=== PATIENT | female | born 1955 | race Caucasian/White ===

== ENCOUNTER 2018-02-26 08:44 | Outpatient (REF) | payer OTHER, SELFPAY ==
[2018-02-26 15:28] LABS: Hemoglobin A1C 5.9 % (4.5-6.2)
[2018-02-26 16:21] LABS: ALT 43 U/L (12-78); AST 23 U/L (15-37); Albumin 4.1 g/dL (3.4-5.0); Alkaline Phosphatase 74 U/L (46-116); Anion Gap 8.7 mmol/L (3-11); BUN 20 mg/dL (7-18); Bilirubin, Total 0.3 mg/dL (0.2-1.0); CO2 29.3 mmol/L (21.0-32.0); CREATININE 0.82 mg/dL (0.55-1.02); Calcium 9.6 mg/dL (8.5-10.1); Chloride 103 mmol/L (98-107); Cholesterol 209 mg/dL (50-200); Glucose 107 mg/dL (70-100); HDL Cholesterol 61 mg/dL (40-60); LDL CHOLESTEROL 129 mg/dL (<100); Potassium 4.3 mmol/L (3.5-5.1); Sodium 141 mmol/L (136-145); TSH (W/Ref FT4) 0.24 uIU/mL (0.358-3.74); Total Protein 7.4 g/dL (6.4-8.2); Triglyceride 92 mg/dL (30-150)
[2018-02-26 16:53] LABS: FREE T4 1.52 ng/dL (0.76-1.46)
== END 2018-02-26 09:04 ==
LOC: NCHCN 08:44
PROVIDERS: PCP Nurse Practitioner; Visit Provider Nurse Practitioner
DX: I10 Essential (primary) hypertension (principal); E78.5 Hyperlipidemia, unspecified; E03.9 Hypothyroidism, unspecified
CPT/HCPCS: 80053; 80061; 83721; 83036; 84439; 84443

== ENCOUNTER 2018-03-19 15:05 | Outpatient (REF) | payer OTHER, SELFPAY ==
--- NOTE | 2018-03-19 14:35 | PAPFT_PTH ---
PATIENT: Nadeem Grey LOC: [facility] U#:[id number] AGE/SX: 62/F ROOM: RE03/19/[address]: Anastasiya Escalona MD : 1955 BED: DIS: 03/19/2018 SPEC #: [id number] RECD: 03/19/18 17:43 STATUS: JOSE RECristobal #: [id number] LATHA: 03/19/18 14:[address]: Anastasiya Escalona DEPT: [facility] Cytology RECD BY: Samantha Liang ENTERED: 03/19/18 17:43 SP TYPE: PAPFT OTHR DR: Pia Abraham Tissues: 1 - CX/ENDOCX FOR PAP SMEARS Procedures: PAP THIN PREP/UVM Screening HPV DNA PROBE Comments: [id number]
== END 2018-03-19 15:25 ==
LOC: LBN 15:05
PROVIDERS: PCP Nurse Practitioner; Visit Provider Obstetrics & Gynecology
DX: Z12.4 Encounter for screening for malignant neoplasm of cervix (principal); Z11.51 Encounter for screening for human papillomavirus (HPV)
CPT/HCPCS: 88142; 87624

== ENCOUNTER 2018-05-10 10:30 | Outpatient (REF) | payer OTHER, SELFPAY ==
[2018-05-10 14:24] LABS: TSH (W/Ref FT4) 0.44 uIU/mL (0.358-3.74)
[2018-05-10 14:38] LABS: Vitamin D 25 Total 45.3 ng/ml (30-100)
[2018-05-11 10:09] LABS: DHEA Sulfate 71 ug/dl (30-182)
== END 2018-05-10 10:50 ==
LOC: NCHCN 10:30
PROVIDERS: PCP Nurse Practitioner; Visit Provider Nurse Practitioner
DX: R53.83 Other fatigue (principal); E03.9 Hypothyroidism, unspecified; E55.9 Vitamin D deficiency, unspecified
CPT/HCPCS: 82306; 82627; 84443

== ENCOUNTER 2018-08-02 00:35 | Outpatient (CLI) | payer OTHER, SELFPAY ==
--- NOTE | 2018-08-02 12:14 | DI.US_ITS ---
SYMPTOMS/DIAGNOSIS: POSTMENOPAUSAL BLEEDING, N95.0, SPOTTING, CRAMPING PELVIC ULTRASOUND: A transabdominal and transvaginal examination was carried out. The uterus measures 8 cm in length, 4.1 cm in height and 4.6 cm in width with an endometrial stripe thickness of 11.2 mm. There is a small quantity of fluid within the endometrial cavity. A 2.5 x 1.9 x 2.6 cm complex avascular collection is noted in the cervix and may well represent blood products. The right ovary is not seen. The left ovary measures 1.6 x 1.3 x 2.1 cm and is visualized only on the transabdominal examination. The kidneys are unremarkable. There is no evidence of free pelvic fluid. SUMMARY: A 2.5 x 1.9 x 2.6 cm region of mixed echogenicity, which is avascular, is noted in the cervix, probably representing blood products. There is also a small quantity of fluid in the endometrial cavity. Note is made of nonvisualization of the right ovary.
== END 2018-08-02 00:55 ==
PROVIDERS: PCP Nurse Practitioner; Visit Provider Obstetrics & Gynecology
DX: N95.0 Postmenopausal bleeding (principal); N94.6 Dysmenorrhea, unspecified; N88.8 Other specified noninflammatory disorders of cervix uteri
CPT/HCPCS: 76830; 76856

== ENCOUNTER 2018-08-16 11:21 | Day surgery (SDC) | payer OTHER, SELFPAY ==
[2018-08-16 11:33] VITALS: BP 158/89; PULSE 73; RESP 16; TEMP 36.9; O2SAT 97
--- NOTE | 2018-08-16 11:54 | W.PM.HP.N ---
Date of service: 08/16/18 Time of Service: 11:55 Assessment and Plan (1) Postmenopausal bleeding: Current visit: Yes Status: Acute (1) PMB (postmenopausal bleeding): At this point we will discontinue the premarin cream at least until her endometrial pathology results have returned. We will start her on Aygestin 5mg BID for the short term. She is going on vacation to [place] next week so we will defer biopsy until her return the following week. I had a discussion with the patient that with patients having PMB that malignancy of the endometrium must always be a consideration and can only be determined through biopsy. EMB was unable to be obtained in the office largely due to anatomic changes of the cervix and upper vagina which are presumably from atrophy. We will schedule her for Hysteroscopy D&C. Risks of surgery were reviewed. All questions were answered to the patient's satisfaction and consent was obtained. History of Present Illness Chief Complaint: PMPB Narrative: 63 yo female with PMPB here for planned procedure Hysteroscopy D+C Review of Systems Review of Systems All systems reviewed & are unremarkable except as noted in HPI and below PFSH Medical History Hx of retinal detachment (Acute) Hypertension Hypoactive thyroid Surgical History History of cataract surgery (Chronic) section Family History Mother Hemochromatosis Father Hemochromatosis Brother Diabetes Social History Smoking/Tobacco Use Status: Former Tobacco Use Quit Date: 08/06/86 Tobacco: How many years used: 10 Drug use: Never Details: Pt states she quit smoking 1986. Do you feel safe at home: Yes Do you feel safe in your relationship?: Yes Meds Home Medications Medication Instructions Recorded Confirmed Type levothyroxine [Synthroid] 137 mcg PO DAILY tab-cap 03/26/13 08/16/18 History cholecalciferol (vitamin D3) 2,000 unit PO DAILY 08/08/16 08/16/18 History [Vitamin D3] loratadine [Claritin] 10 mg PO DAILY tab-cap 08/08/16 08/03/18 History omega-3 fatty acids-fish oil 2 ea PO DAILY 08/08/16 08/16/18 History lisinopril 10 mg tablet 10 mg PO DAILY 03/19/18 08/16/18 History conjugated estrogens 0.625 mg/gram See Rx Instructions .ROUTE 04/06/18 08/16/18 Rx vaginal cream .COMPLEX #30 gm norethindrone acetate 5 mg PO BID 08/16/18 08/16/18 History Allergies Allergy/AdvReac Type Severity Reaction Status Date / Time No Known Allergies Allergy Unverified 08/16/18 11:39 Exam Narrative Exam Narrative: cooperative healthy appearing no distress Chest Chest: normal inspection of the chest Resp Effort & Inspection: normal respiratory effort Auscultation: clear to auscultation bilaterally Percussion: percussion normal GI Inspection: normal to inspection Palpation: soft and no hepatosplenomegaly Auscultation: normal bowel sounds External Female Exam: external appearance normal Speculum Exam - Vagina: normal appearance of the vagina Speculum Exam - Cervix: normal appearance of the cervix Bimanual Exam- Vagina & Uterus: normal bimanual exam Results Labs : 08/16/18 11:34 Last Vital Signs Temp 36.9 C 08/16/18 11:33 Pulse 73 08/16/18 11:33 Resp 16 08/16/18 11:33 BP 158/89 H 08/16/18 11:33 Pulse Ox 97 08/16/18 11:33
[2018-08-16 11:58] LABS: HCT 43.3 % (36.0-46.0); HGB 14.7 g/dL (12.0-15.5); Mean Corp. HGB Concentration 33.9 g/dL (32.0-36.0); Mean Corpuscular Hemoglobin 30.6 pg (27.0-33.0); Mean Corpuscular Volume 90.2 fL (80-95); Mean Platelet Volume 10.2 fL (8.0-11.0); Platelet Count 256 x1000/uL (130-400); RBC Distribution Width 13.5 % (11.7-14.6); White Blood Cell Count 9.56 k/cumm (4.4-10.8)
[2018-08-16] MEDS: Lactated Ringers 1,000 ML 125 ML IV ×2 (13:55→16:00)
--- NOTE | 2018-08-16 16:15 | ENDOMET_PTH ---
PATIENT: Nadeem Grey LOC: [facility] U#:[id number] AGE/SX: 63/F ROOM: RE08/16/[address]: Anastasiya Escalona MD : 1955 BED: DIS: 08/16/2018 SPEC #: [id number] RECD: 08/16/18 17:21 STATUS: JOSE REQ #: [id number] LATHA: 08/16/18 16:[address]: Anastasiya Escalona DEPT: Surgical Specimen RECD BY: Samantha Liang ENTERED: 08/16/18 17:21 SP TYPE: Endomet OTHR DR: Pia Abraham Tissues: 1 - ENDOMETRIUM BX/CURRETTE Procedures: GROSS AND MICRO LEVEL 4 Comments: [id number]
[2018-08-16 16:19] LABS: Bilirubin Negative (Negative); Blood Small (Negative); Clarity Clear; Glucose Negative (Negative); Ketones Negative (Negative); Leukocyte Esterase Negative (Negative); Nitrite Negative (Negative); Urobilinogen 0.2 EU/dL (Up TO 0.2)
[2018-08-16] MEDS: Lidocaine 1% Multi-Dose 50 ML VIAL (16:23)
[2018-08-16 17:10] LABS: Bacteria Negative HPF (Negative); C & S Indicated? Yes; Crystals Negative HPF (Negative); Epithelial Cells Few HPF (Negative); Mucus Negative (Negative); RBC 0-2 (0-2); WBC 20-50 HPF (0-5)
[2018-08-16 17:14] VITALS: BP 142/62; PULSE 64; RESP 16; TEMP 36.6; O2SAT 96
--- NOTE | 2018-08-17 07:24 | ROE_ITS ---
REPORT OF OPERATIVE PROCEDURE DATE OF PROCEDURE August 16, 2018 PREOPERATIVE DIAGNOSIS Postoperative bleeding. POSTOPERATIVE DIAGNOSIS Postoperative bleeding. PROCEDURE Hysteroscopy D and C. SURGEON Anastasiya Escalona M.D. HOUSEKEEPING/LAUNDRY Amber Gonzalez M.D. ANESTHESIA GENERAL COMPLICATIONS None. ESTIMATED BLOOD LOSS Less than 25 cc. FLUIDS Per Anesthesia record FINDINGS Thickened polypoid irregular endometrium. PROCEDURE The patient was taken to the Operating Room where she was properly identified. She was then placed on the Operating Table in the dorsal supine position, and general anesthesia was induced without diffic ulty. She was then placed in the dorsal lithotomy position, prepped and draped in the normal sterile fashion. A formal timeout procedure was then confirmed. Confirming the patient and procedure with al l surgical personnel present. The patient had been complaining of dysuria preoperatively and a UA wa s requested preoperatively, however it was not sent, therefore a straight cath urine collection was o btained and the urine was sent for a UA culture and sensitivity. She did receive presumptive treatmen t antibiotics for UTI with 2 grams of Ancef preoperatively. A speculum was placed. The cervix was vis ualized, grasped on the anterior lip with a single-tooth tenaculum. The posterior lip of the cervix w as adhesed to the posterior fornices of the vagina. These adhesions were released by manual dissectio n. It was difficult to visualize her cervical os and dilate. At this time, it was requested that Dr. Gonzalez to assist with the case, for an extra set of hands and eyes. The cervix was identified. The cervix was dilated. The hysteroscope was advanced through the uterine cavity. The above findings wer e noted; it was a thickened irregular polypoid endometrium. Sharp curettage was then confirmed to go od cryo. The endometrial curettings were sent to Pathology for permanent evaluation. All the equipmen t was removed from the uterus. Hemostasis was confirmed. Sponge, lap, needle, and instrument counts w ere correct x2. CC: [facility]
== END 2018-08-16 17:14 | disposition home or self-care (01) ==
PROVIDERS: PCP Nurse Practitioner; Visit Provider Obstetrics & Gynecology
PROC: 0UDB8ZZ Extraction of Endometrium, Via Natural or Artificial Opening Endoscopic (ICD-10-PCS; CPT 58558; principal; 2018-08-16 13:00)
DX: N95.0 Postmenopausal bleeding (principal); C54.1 Malignant neoplasm of endometrium; I10 Essential (primary) hypertension; R30.0 Dysuria
CPT/HCPCS: 58558; 85027; 86850; 86900; 86901; 88305; NC; 81003; 81015; 87086

== ENCOUNTER 2019-01-15 20:22 | Outpatient (REF) | payer OTHER, SELFPAY ==
[2019-01-15 19:15] LABS: Bilirubin Negative (Negative); Blood Trace-intact (Negative); Clarity Clear (Clear); Glucose Negative (Negative); Ketones Negative (Negative); Leukocyte Esterase Moderate (Negative); Nitrite Negative (Negative); Specific Gravity <= 1.005 (1.005-1.025); Urobilinogen 0.2 EU/dL (Up TO 0.2); pH 5.5 (5-8)
[2019-01-15 19:55] LABS: Bacteria Moderate HPF (Negative); Crystals Moderate Amorphous HPF (Negative); Epithelial Cells Negative HPF (Negative); Mucus Negative (Negative); Other Cells Negative (Negative); RBC 0-2 (0-2)
[2019-01-15 19:56] LABS: C & S Indicated? Yes; Casts Negative LPF (Negative)
== END 2019-01-15 20:42 ==
LOC: LBN 20:22
PROVIDERS: PCP Nurse Practitioner; Visit Provider Radiology Radiation Oncology
DX: R30.0 Dysuria (principal)
CPT/HCPCS: 81003; 81015; 87086

== ENCOUNTER 2019-03-05 06:14 | Day surgery (SDC) | payer OTHER, SELFPAY ==
[2019-03-05 06:26] VITALS: BP 155/92; PULSE 107; RESP 99; TEMP 36.6; O2SAT 99
--- NOTE | 2019-03-05 06:43 | COLE_ITS ---
Date of service: 03/05/19 Time of Service: 07: Colonoscopy Report Date of procedure: 03/05/19 Pre-op diagnosis general: Hx of polyps Post-op diagnosis procedure note: same (colorectal polyp and diverticulosis) Procedure: Colonoscopy with polypectomy by hot snare Tatooing of polyp Surgeon: Neda Flores Anesthesia proc note operative: other (General/ ASA 2/Curtis Dumont, SHEA) Estimated blood loss (mL): 5 Pathology: other (Ascending colon polyp) Complications: None Disposition: same day Indications: Mrs. Grey is a pleasant 63 year old female seen in the office for a colonoscopy. She has a history of polyps. Risks, benefits and complications have been reviewed. Complications include but are not limited to bleeding, pain, perforation, missed small lesion/polyp, sore throat, aspiration and adverse reaction to the medications. Questions were entertained and answered to their satisfaction and they wished to proceed. No guarantees were given or implied. Prep: Miralax/Dulcolax Procedure Start Time: : Procedure End Time: 08:00 Retraction Time: 22 minutes Findings: Polyp in the ascending colon measuring about 2 cm in size. [facility] sigmoid diverticulosis Procedure Description: After informed consent was obtained the patient was taken to the procedure room and placed in a left decubitous position. Monitors were applied and a time out was done. The patients name, date of , procedure, allergies to medications and metal in their body was reviewed. The patient was then sedated. Once sedated and comfortable a rectal exam was done. External exam was normal. Internal exam revealed a normal sphincter tone and no palpable masses. The scope was then introduced and retro-felexed. No internal hemorrhoids, polyps or masses were identified on retro-flexion. The scope was then advanced to the cecum without difficulty. The TI and appendiceal orifice were identified. The prep was adequate. The scope was then slowly retracted over 22 minutes back into the rectum. There was one polyp that measured approximately 2 cm in the proximal ascending colon. It was removed in 3 pieces with a hot snare. The area was then tattooed with 3.5 cc of ink. There was mild diverticulosis of the sigmoid colon. The scope was removed and the patient was woken up and taken back to Same day surgery in stable condition. The patient tolerated the procedure well and there were no immediate complications. Follow up: Follow up will depend on final pathology results
--- NOTE | 2019-03-05 06:49 | W.PM.DSUDISC ---
Discharge Plan Disposition Patient Disposition: HOME Condition: Good Discharge Details Reason For Visit: hx of colonoscopy Attending Provider: Neda Flores Primary Care Provider: Pia Abraham Home Meds and New Rx's Prescriptions: Continued lisinopril 10 mg tablet 20 mg PO DAILY RF: 0 levothyroxine [Synthroid] 137 MCG tablet 150 mcg PO DAILY RF: 0 loratadine [Claritin] 10 MG tablet 10 mg PO DAILY PRNRF: 0 omega-3 fatty acids-fish oil 1 EACH capsule 2 ea PO DAILY RF: 0 cholecalciferol (vitamin D3) [Vitamin D3] 2,000 UNIT capsule 2,000 unit PO DAILY RF: 0 hydrochlorothiazide 12.5 mg Tablet 12.5 mg PO DAILY RF: 0 Discontinued polyethylene glycol 3350 17 gram/dose powder 238 g PO ONCE Qty: 238 RF: 0 bisacodyl [Dulcolax (bisacodyl)] 5 mg tablet,delayed release (DR/EC) 5 mg PO ONCE Qty: 4 RF: 0 Discharge Instructions Instructions: Colonoscopy (GEN), Colorectal Polyps (DC), Diverticulosis (DC) Additional Instructions: Findings: One polyp Diverticulosis Follow up: depends on final pathology Please call if you develop: fevers >101.5 Nausea or Vomiting Abdominal pain that is not transient DAY SURGERY UNIT POST ENDOSCOPY INSTRUCTIONS 1. Because there will be medication in your system for the next 24 hours, you may feel a little sleepy. Your coordination will be affected. Therefore: a. Do not drive or operate dangerous equipment for 24 hours. b. Do not drink alcohol beverages for 24 hours (not even beer). c. Plan to go home and rest for the day. 2. Generally there are no restrictions on your activity after a day or so has gone by, but you may feel a bit fatigued for a few days. 3 After you arrive home you may have a light meal and return to a normal diet as you can tolerate it without feeling sick to your stomach. 4. After surgery, you may feel pain or discomfort. This should be only transient, but if it persists please contact your doctor. 5. If there are any questions regarding the findings of your procedure, please feel free to contact your doctor. 6. If you are unable to contact your doctor with a problem, contact the hospital at [phone]. 7. Continue all your regular medications unless directed otherwise. I understand the above instructions and have no questions. Signature of Patient or Responsible Adult Escort Date/Time Name of Responsible Adult Escort Signature of Nurse Date/Time Activity:: Activity as Tolerated Diet:: High Fiber diet Discharge Orders Discharge Orders: Discharge Order (Routine); Ordered 03/05/19 Ordered By: Neda Flores DS: Diagnosis Discharge Diagnosis (1) S/P colonoscopy: Status: Acute (2) Colorectal polyps: Status: Acute (3) Diverticulosis: Status: Acute
[2019-03-05] MEDS: Lactated Ringers 1,000 ML 80 ML IV (06:55)
[2019-03-05] MEDS: Droperidol 5 MG/2 ML VIAL (07:15)
--- NOTE | 2019-03-05 07:45 | BOWEL_PTH ---
PATIENT: Nadeem Grey LOC: [facility] U#:[id number] AGE/SX: 63/F ROOM: RE03/05/[address]: Neda Flores MD : 1955 BED: DIS: 03/05/2019 SPEC #: [id number] RECD: 03/05/19 12:45 STATUS: JOSE REQ #: [id number] LATHA: 03/05/19 07:[address]: Neda Flores DEPT: Surgical Specimen RECD BY: Samantha Liang ENTERED: 03/05/19 12:46 SP TYPE: Bowel OTHR DR: Pia Abraham Tissues: 1 - BIOPSY BOWEL Procedures: GROSS AND MICRO LEVEL 4 Comments: [id number]
[2019-03-05] MEDS: Endoscopic Tattoo 5 ML SYR IJ (07:50)
[2019-03-05 08:40] VITALS: BP 107/69; PULSE 75; RESP 18; TEMP 36.6; O2SAT 95
== END 2019-03-05 09:21 | disposition home or self-care (01) ==
PROVIDERS: PCP Nurse Practitioner; Visit Provider Surgery
PROC: 0DJD8ZZ Inspection of Lower Intestinal Tract, Via Natural or Artificial Opening Endoscopic (ICD-10-PCS; CPT 45378; principal; 2019-03-05 07:30)
DX: Z12.11 Encounter for screening for malignant neoplasm of colon (principal); D12.2 Benign neoplasm of ascending colon; K57.30 Diverticulosis of large intestine without perforation or abscess without bleeding; Z86.010 Personal history of colon polyps; I10 Essential (primary) hypertension
CPT/HCPCS: 45385; 45381; 88305; J1790

== ENCOUNTER 2019-03-13 13:31 | Outpatient (REF) | payer OTHER, SELFPAY ==
[2019-03-13 15:19] LABS: ALT 34 U/L (14-59); AST 15 U/L (15-37); Alkaline Phosphatase 78 U/L (46-116); Anion Gap 9.6 mmol/L (3-11); BUN 21 mg/dL (7-18); Bilirubin, Total 0.4 mg/dL (0.2-1.0); CO2 28.4 mmol/L (21.0-32.0); CREATININE 0.82 mg/dL (0.55-1.02); Calcium 9.2 mg/dL (8.5-10.1); Calculated LDL 133 mg/dL; Chloride 100 mmol/L (98-107); Cholesterol 222 mg/dL (50-200); Glucose 120 mg/dL (70-100); HDL Cholesterol 66 mg/dL (40-60); Potassium 3.8 mmol/L (3.5-5.1); Sodium 138 mmol/L (136-145); Total Protein 7.4 g/dL (6.4-8.2); Triglyceride 116 mg/dL (30-150)
== END 2019-03-13 13:51 ==
LOC: NCHCN 13:31
PROVIDERS: PCP Nurse Practitioner; Visit Provider Nurse Practitioner
DX: I10 Essential (primary) hypertension (principal); E78.5 Hyperlipidemia, unspecified
CPT/HCPCS: 80053; 80061

== ENCOUNTER 2020-06-09 17:17 | Outpatient (REF) | payer OTHER, SELFPAY ==
[2020-06-09 14:33] LABS: ALT 48 U/L (14-59); AST 22 U/L (15-37); Albumin 3.9 g/dL (3.4-5.0); Alkaline Phosphatase 79 U/L (46-116); Anion Gap 10.3 mmol/L (3-11); BUN 13 mg/dL (7-18); Bilirubin, Total 0.3 mg/dL (0.2-1.0); CO2 27.7 mmol/L (21.0-32.0); CREATININE 0.9 mg/dL (0.55-1.02); Calcium 9.3 mg/dL (8.5-10.1); Calculated LDL 132 mg/dL (<100); Chloride 98 mmol/L (98-107); Cholesterol 238 mg/dL (<200); Glucose 192 mg/dL (74-106); HDL Cholesterol 61 mg/dL (40-60); Potassium 3.7 mmol/L (3.5-5.1); Sodium 136 mmol/L (136-145); TSH (W/Ref FT4) 3.65 uIU/mL (0.36-3.74); Total Protein 7.5 g/dL (6.4-8.2); Triglyceride 227 mg/dL (<150)
[2020-06-11 04:27] LABS: Vitamin D 25 Total 39.2 ng/ml (30-100)
== END 2020-06-09 17:18 | disposition home or self-care (01) ==
LOC: NCHCN 17:17
PROVIDERS: PCP Nurse Practitioner; Visit Provider Nurse Practitioner
DX: E03.9 Hypothyroidism, unspecified (principal); I10 Essential (primary) hypertension; E78.5 Hyperlipidemia, unspecified; R73.03 Prediabetes; E55.9 Vitamin D deficiency, unspecified
CPT/HCPCS: 80053; 80061; 82306; 84443

== ENCOUNTER 2020-06-30 11:24 | Outpatient (REF) | payer OTHER, SELFPAY ==
[2020-06-30 15:45] LABS: Hemoglobin A1C 6.6 % (<5.7)
== END 2020-06-30 11:25 | disposition home or self-care (01) ==
LOC: NCHCN 11:24
PROVIDERS: PCP Nurse Practitioner; Visit Provider Nurse Practitioner
DX: R73.03 Prediabetes (principal)
CPT/HCPCS: 83036

== ENCOUNTER 2020-11-02 18:49 | Outpatient (REF) | payer OTHER, SELFPAY ==
[2020-11-02 20:31] LABS: TSH (W/Ref FT4) 0.55 uIU/mL (0.36-3.74)
== END 2020-11-02 18:50 | disposition home or self-care (01) ==
LOC: NCHCN 18:49
PROVIDERS: PCP Nurse Practitioner; Visit Provider Nurse Practitioner
DX: E03.9 Hypothyroidism, unspecified (principal)
CPT/HCPCS: 84443

== ENCOUNTER 2021-08-16 09:09 | Outpatient (REF) | payer MEDICARE, OTHER, SELFPAY ==
[2021-08-16 17:23] LABS: Hemoglobin A1C 7.2 % (<5.7)
[2021-08-16 17:50] LABS: Anion Gap 10.1 mmol/L (3-11); BUN 16 mg/dL (7-18); CO2 26.9 mmol/L (21.0-32.0); CREATININE 0.8 mg/dL (0.55-1.02); Calcium 9.1 mg/dL (8.5-10.1); Chloride 103 mmol/L (98-107); Glucose 141 mg/dL (74-106); Potassium 4.3 mmol/L (3.5-5.1); Sodium 140 mmol/L (136-145); TSH (W/Ref FT4) 1.29 uIU/mL (0.36-3.74)
[2021-08-16 18:00] LABS: Calculated LDL 53 mg/dL (<100); Cholesterol 138 mg/dL (<200); HDL Cholesterol 55 mg/dL (40-60); Triglyceride 150 mg/dL (<150)
== END 2021-08-16 09:10 | disposition home or self-care (01) ==
LOC: NCHCN 09:09
PROVIDERS: PCP Nurse Practitioner; Visit Provider Nurse Practitioner Family
DX: E11.9 Type 2 diabetes mellitus without complications (principal); I10 Essential (primary) hypertension; E03.9 Hypothyroidism, unspecified; C54.1 Malignant neoplasm of endometrium
CPT/HCPCS: 80048; 80061; 83036; 84443

== ENCOUNTER → 2021-09-30 02:27 | Outpatient (CLI) | payer MEDICARE, OTHER, SELFPAY ==
--- NOTE | 2021-09-30 15:00 | DI.DEXA_ITS ---
Exam(s) XR DEXA BONE DENSITY W/WO TL EXAM: XR DEXA BONE DENSITY W/WO TL CLINICAL HISTORY: MENOPAUSAL, Z78.0; SCREENING FOR OSTEOPOROSIS, Z13.820 TECHNIQUE: COMPARISON: No exams were available for comparison FINDINGS: Lateral Spine Image: Unremarkable. No compression deformities identified. Left hip: Total T-Score: 0.2 Total Z-Score: 1.4 T- and Z-scores: Within normal limits. Lumbar Spine: Total T-Score: -2.2 Total Z-Score: -0.4 T- and Z-scores: Findings are consistent with osteopenia. There is osteoporosis in the L3 and L4 vert ebral bodies with T-scores of -3.6 and -2.6 respectively. IMPRESSION: Osteoporosis seen in the L3 and L4 vertebral bodies.
== END ==
PROVIDERS: PCP Nurse Practitioner; Visit Provider Nurse Practitioner Family
DX: M81.0 Age-related osteoporosis without current pathological fracture (principal); M85.88 Other specified disorders of bone density and structure, other site; Z78.0 Asymptomatic menopausal state
CPT/HCPCS: 77080; 99212

== ENCOUNTER → 2022-09-12 10:37 | Outpatient (BNVA) | payer MEDICARE, OTHER, SELFPAY | PROVIDERS: PCP Nurse Practitioner Family; Referring Provider Nurse Practitioner Family; Visit Provider Surgery | DX: K57.90 Diverticulosis of intestine, part unspecified, without perforation or abscess without bleeding (principal); D36.9 Benign neoplasm, unspecified site; Z12.11 Encounter for screening for malignant neoplasm of colon | CPT/HCPCS: 99212 ==

== ENCOUNTER 2022-09-26 07:42 | Day surgery (SDC) | payer MEDICARE, OTHER, SELFPAY ==
[2022-09-26 07:50] VITALS: BP 173/100; PULSE 112; RESP 118; TEMP 36.7; O2SAT 98
--- NOTE | 2022-09-26 08:29 | W.COLOREPORT ---
Date of service: 09/26/22 Time of Service: 08:29 Colonoscopy Report Procedure Description: Procedures performed: 1. Colonoscopy Preoperative diagnosis: Colon polyps, surveillance colonoscopy Postoperative diagnosis: Normal Colon Surgeon: Kodi Masters Anesthesia: Hao Indication for procedure: 67-year-old woman without any symptoms, prior colonoscopies x2 have both removed adenoma polyps, no family history of colon cancer due for surveillance. History of hysterectomy for cancer and pelvic radiation. The patient's last colonoscopy found a 2 cm polyp in the ascending colon which was removed and the site was tattooed. That polyp was tubulovillous adenoma. Findings: A 12-15 mm sessile polyp was removed from the ascending colon with hot snare technique. It was quite sessile and had to be removed in 3 separate pieces. This polyp was growing up directly within the tattooed area about 3 or 4 folds above the ileocecal valve. This is certainly considered to be a recurrent polyp of the original one removed 3 years ago. No other polyps were found. There was no diverticulosis. Surveillance/follow-up recommendations: Repeat colonoscopy needs to be performed in 6 months to reassess the site. An adult colonoscope should be used as this patient required significant positioning, maneuvering and abdominal pressure to get to the cecum. If the polyp is growing back again, consideration for a right hemicolectomy should be given. Complications: None Blood loss: Minimal Specimens:?? YES Quality of Prep:?? Good Procedure in detail: Written consent was obtained from the patient who was in agreement with the risks, benefits and indications of the procedure.? We went to the endoscopy suite and laid the patient in left lateral decubitus position.? Anesthesia was administered which was tolerated well.? A timeout was performed and when we are all in agreement we began the procedure. Digital rectal exam and visual examination was performed and within normal limits.? A well?lubricated colonoscope was advanced without difficulty all the way to the cecum identified by the ileocecal valve, and triangular folds and appendiceal orifice.? It was then slowly withdrawn.?? Retroflexion was performed in the rectum.? The findings/interventions are noted above. The scope was then removed and the patient tolerated the procedure well and was then taken back to the PACU in hemodynamically stable condition.rocedure well and was then taken back to the PACU in hemodynamically stable condition.
[2022-09-26] MEDS: Lactated Ringers 1,000 ML 80 ML IV (08:51)
--- NOTE | 2022-09-26 08:51 | W.ANESPRE ---
General Info Date of Service Date Performed: 09/26/22 Height: 5 ft 6 in Weight: 107.3 kg Body Mass Index (BMI): 38.2 Surgical Procedure: Operation Date: 09/26/22 09:05 Proposed Procedure Side Surgeon p Colonoscopy Onur Masters MD Actual Procedure Side Surgeon p Colonoscopy Onur Masters MD Meds Allergies and Home Medications Allergies Allergy/AdvReac Type Severity Reaction Status Date / Time No Known Allergies Allergy Unverified 09/26/22 08:02 Home Medication Medication Instructions Recorded cholecalciferol (vitamin D3) 50 2,000 unit PO DAILY 08/08/16 mcg (2,000 unit) capsule (Vitamin D3) loratadine 10 mg tablet (Claritin) 10 mg PO DAILY PRN 08/08/16 omega-3 fatty acids-fish oil 300 2 ea PO DAILY 08/08/16 mg-1,000 mg capsule alprazolam 0.5 mg tablet (Xanax) 0.5 mg PO DAILY PRN 08/24/21 levothyroxine 112 mcg tablet 112 mcg PO DAILY 08/24/21 levothyroxine 50 mcg tablet 50 mcg PO DAILY 08/24/21 lisinopril 30 mg tablet 30 mg PO DAILY 08/24/21 rosuvastatin 20 mg tablet (Crestor) 20 mg PO DAILY 08/24/21 metformin 500 mg tablet 500 mg PO BID 09/30/21 benzoyl peroxide 5 % topical gel 1 applic topical DAILY 03/21/22 metronidazole 0.75 % topical gel 1 applic topical BID 03/21/22 bisacodyl 5 mg tablet,delayed 5 mg PO ONCE colonscopy bowel prep 09/12/22 release (Dulcolax (bisacodyl)) #4 tabs lactobacillus combination no.9 4 4,000 mmu cells PO DAILY 09/12/22 billion cell capsule (Adult 50 Plus Probiotic) polyethylene glycol 3350 17 238 g PO ONCE colonoscopy prep 09/12/22 gram/dose oral powder #238 grams Current Visit Medications: Current Medications Generic Name Dose Route Start Last Admin Trade Name Freq PRN Reason Stop Dose Admin Ringer's Solution 1,000 mls @ 80 mls/hr 09/26/22 06:00 IV 10/23/22 23:59 INFUSION JERALD IV Miscellaneous Supplies 1 each 09/26/22 06:00 Iv Access IV 06/18/23 23:59 DIRECTED JERALD Sodium Chloride 0 ml 09/26/22 06:00 Normal Saline Flush 10 Ml Syr IV 10/23/22 23:59 PRN PRN Sodium Chloride 0 ml 09/26/22 06:00 Normal Saline 10 Ml Vial IJ 10/23/22 23:59 DIRECTED PRN Sterile Water 0 ml 09/26/22 06:00 Water,Injection,Sterile 10 Ml Vial IJ 10/23/22 23:59 DIRECTED PRN PFSH Active Problems Active Problems: Problem Status Onset Code Vitamin D deficiency E55.9 Anxiety F41.9 Diabetes mellitus E11.9 Screening for colon cancer Z12.11 Dupuytren's contracture of left hand M72.0 S/P colonoscopy ~03/05/19 Z98.890 Diverticulosis K57.90 Colorectal polyps K63.5 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 Postmenopausal bleeding N95.0 Lichen planus L43.9 Endometrial adenocarcinoma C54.1 Hypoactive thyroid Hypertension section History of cataract surgery Z98.49 Hx of retinal detachment Z86.69 Medical History Medical History Endometrial carcinoma Hyperlipidemia Rosacea Skin irritation Skin lesion Subcutaneous mass of left hand Surgical History Surgical History H/O: hysterectomy History of colonoscopy (~2015) Tobacco Smoking/Tobacco Use Status: Former Tobacco Use Alcohol Alcohol Intake: current Alcohol intake frequency: a few times a week Alcohol type: wine and hard liquor Substance Use Substance use: Never Substance use type: does not use Prental History History 2 Para 2 Hx # Term Pregnancies 2 Multiple births Hx # Pregnancies Ectopic pregnancies AB induced Hx Number of Living Children 2 AB spontaneous Vital Signs and Lab Results Vital Signs Most Recent Vital Signs in EMR: Most Recent Vital Signs Temp Pulse Resp BP Pulse Ox 36.7 C 112 H 118 H 173/100 H 98 09/26/22 07:50 09/26/22 07:50 09/26/22 07:50 09/26/22 07:50 09/26/22 07:50 Point of Care Results Point of Care Results: Finger Stick Blood Glucose 178 09/26/22 08:06 Lab Results Blood Type / Crossmatch: No Data to Display Complete Blood Count: No Data to Display Complete Metabolic Panel: No Data to Display Liver Function Panel: No Data to Display Coagulation Panel: No Data to Display Cardiac Panel: No Data to Display Arterial Blood Gas: No Data to Display Venous Blood Gas: No Data to Display Pancreas Panel: No Data to Display Thyroid Panel: No Data to Display Infectious Disease: No Data to Display Blood Cultures: No Data to Display Toxicology Panel: No Data to Display Anesthesia Assessment and Plan Anesthesia History Personal History: No History of Anesthesia Complications Family History: No Family History of Anesthesia Complications Exercise Tolerance Exercise Tolerance: Metabolic Equivalents>4 Pertinent Negatives Pertinent Negatives: No Symptoms of GERD Cardiac & Pulmonary Exam Cardiac Exam: Normal S1/S2 Heart Sounds Pulmonary Exam: Clear Bilateral Breath Sounds Implantable Cardiac Device Does patient have a Pacemaker or an ICD?: No Airway Exam Known Difficult Airway: No Mallampati Class: 2 Mouth Opening: Normal (> 3cm) Thyromental Distance: Greater than 3 cm Neck Range of Motion: Full ROM Neck Circumference: Normal Teeth Condition: Normal Dentition ASA Classification ASA Score: ASA 2 Emergency Case?: No NPO Status NPO Status: NPO Clears >2 hours, Solids >8 hours Anesthesia Plan Resuscitation Status: Full Code Anesthesia Technique: MAC Anesthesia Airway Planned: Natural Airway Monitors Used: Standard Monitors
[2022-09-26 08:52] VITALS: BMI 38.2
--- NOTE | 2022-09-26 09:25 | BOWEL_PTH ---
PATIENT: Nadeem Grey LOC: [facility] U#:[id number] AGE/SX: 67/F ROOM: RE09/26/[address]: Onur Masters : 1955 BED: DIS: 09/26/2022 SPEC #: [id number] RECD: 09/26/22 12:53 STATUS: JOSE REQ #: [id number] LATHA: 09/26/22 09:[address]: Onur Masters DEPT: Surgical Specimen RECD BY: Samantha Liang ENTERED: 09/26/22 12:54 SP TYPE: Bowel OTHR DR: KENYATTA PUENTE Tissues: 1 - BIOPSY BOWEL Procedures: GROSS AND MICRO LEVEL 4 Comments: [id number]
[2022-09-26 09:42] VITALS: BP 116/56; PULSE 75; RESP 16; TEMP 36.6; O2SAT 97
--- NOTE | 2022-09-26 09:59 | W.ANESPOSTOP ---
Postoperative Evaluation Date, Time and Location Date Performed: 09/26/22 Time Performed: 09:59 Patient Location: Day Surgery Unit Vital Signs Most Recent Imported Vital Signs: Most Recent Vital Signs Temp Pulse Resp BP Pulse Ox 36.6 C 75 16 116/56 L 97 09/26/22 09:42 09/26/22 09:42 09/26/22 09:42 09/26/22 09:42 09/26/22 09:42 Pain Score Most Recent Pain Score: Most Recent Pain Score Pain Level 0 09/26/22 09:42 Assessment Mental Status: Awake (Alert & Oriented to Patient Baseline) Airway and Respiratory Function: Patent airway with normal (patient baseline) respiratory exam Cardiovascular Function: Hemodynamically Stable Hydration Status: Adequately Hydrated Nausea & Vomiting: No Nausea or Vomiting Pain: Pt. Denies Any Pain Peripheral Nerve Block: Patient did not receive a nerve block
[2022-09-26 10:05] VITALS: BP 117/73; PULSE 70; RESP 18; TEMP 36.3; O2SAT 99
== END 2022-09-26 10:20 | disposition home or self-care (01) ==
PROVIDERS: PCP Nurse Practitioner Family; Visit Provider Student in an Organized Health Care Education/Training Program
PROC: 0DJD8ZZ Inspection of Lower Intestinal Tract, Via Natural or Artificial Opening Endoscopic (ICD-10-PCS; CPT 45378; principal; 2022-09-26 09:00)
DX: Z12.11 Encounter for screening for malignant neoplasm of colon (principal); D37.4 Neoplasm of uncertain behavior of colon; Z86.010 Personal history of colon polyps
CPT/HCPCS: 45385; 88305

== ENCOUNTER 2022-11-15 20:14 | Outpatient (REF) | payer MEDICARE, OTHER, SELFPAY ==
[2022-11-15 22:01] LABS: Hemoglobin A1C 7.6 % (<5.7)
[2022-11-15 22:23] LABS: ALT 33 U/L (14-59); AST 21 U/L (15-37); Albumin 3.9 g/dL (3.4-5.0); Alkaline Phosphatase 78 U/L (46-116); BUN 16 mg/dL (7-18); Bilirubin, Total 0.3 mg/dL (0.2-1.0); CREATININE 1.1 mg/dL (0.55-1.02); Calcium 9.3 mg/dL (8.5-10.1); Chloride 101 mmol/L (98-107); Estimated GFR 55.42 (mL/min/1.73m2); Glucose 175 mg/dL (74-106); Potassium 3.7 mmol/L (3.5-5.1); Sodium 140 mmol/L (136-145); TSH 0.26 uIU/mL (0.36-3.74); Total Protein 7.7 g/dL (6.4-8.2)
== END 2022-11-15 20:15 | disposition home or self-care (01) ==
LOC: NCHCN 20:14
PROVIDERS: PCP Nurse Practitioner Family; Visit Provider Nurse Practitioner Family
DX: E11.9 Type 2 diabetes mellitus without complications (principal); E78.5 Hyperlipidemia, unspecified; I10 Essential (primary) hypertension; E03.9 Hypothyroidism, unspecified
CPT/HCPCS: 80053; 83036; 84443

== ENCOUNTER 2023-03-06 13:18 | Outpatient (REF) | payer MEDICARE, OTHER, SELFPAY ==
[2023-03-06 18:43] LABS: Hemoglobin A1C 8.2 % (<5.7)
[2023-03-06 18:50] LABS: TSH 4.05 uIU/mL (0.36-3.74)
== END 2023-03-06 13:19 | disposition home or self-care (01) ==
LOC: NCHCN 13:18
PROVIDERS: PCP Nurse Practitioner Family; Visit Provider Nurse Practitioner Family
DX: E11.9 Type 2 diabetes mellitus without complications (principal); E03.9 Hypothyroidism, unspecified
CPT/HCPCS: 83036; 84443

== ENCOUNTER → 2023-03-09 10:28 | Outpatient (BNVA) | payer MEDICARE, OTHER, SELFPAY | PROVIDERS: PCP Nurse Practitioner Family; Referring Provider Nurse Practitioner Family; Visit Provider Physical Therapy Assistant | DX: Z12.11 Encounter for screening for malignant neoplasm of colon (principal); Z86.010 Personal history of colon polyps; Z80.0 Family history of malignant neoplasm of digestive organs ==

== ENCOUNTER 2023-04-03 10:01 | Outpatient (CLI) | payer MEDICARE, OTHER, SELFPAY | END 2023-04-03 10:02 | disposition home or self-care (01) | LOC: CARDOPNVT 10:01 | PROVIDERS: PCP Nurse Practitioner Family; Visit Provider Nurse Practitioner Family | DX: I47.19 Other supraventricular tachycardia (principal) | CPT/HCPCS: 93246 ==

== ENCOUNTER 2023-04-28 08:45 | Outpatient (CLI) | payer MEDICARE, OTHER, SELFPAY ==
--- NOTE | 2023-04-28 09:40 | W.CARDEVENT ---
Date of service: 04/28/23 Time of Service: 09:40 Cardiac Event Recorder Referring Provider:: KWAME Indications:: Cardiac arrhythmia Cardiac Event Note: The predominant rhythm is sinus with physiologic sinus bradycardia and sinus tachycardia, rate range 50 to 149 bpm with average of 78 bpm. Frequent supraventricular ectopy, sometimes aberrantly conducted with few episodes of supraventricular tachycardia, longest 7 beats, fastest 138 bpm. Few ventricular ectopics without ventricular tachycardia. Patient triggered events do not correspond to any arrhythmias
== END 2023-04-28 08:46 | disposition home or self-care (01) ==
LOC: CARDOPNVT 08:45
PROVIDERS: PCP Nurse Practitioner Family; Visit Provider Internal Medicine Interventional Cardiology
DX: I49.9 Cardiac arrhythmia, unspecified (principal); I47.10 Supraventricular tachycardia, unspecified
CPT/HCPCS: 00123; 93248

== ENCOUNTER 2023-06-08 14:19 | Outpatient (REF) | payer MEDICARE, OTHER, SELFPAY ==
[2023-06-08 15:58] LABS: Hemoglobin A1C 7.4 % (<5.7)
[2023-06-08 16:18] LABS: ALT 34 U/L (14-59); AST 19 U/L (15-37); Albumin 4.1 g/dL (3.4-5.0); Alkaline Phosphatase 63 U/L (46-116); Anion Gap 8.4 mmol/L (3-11); BUN 18 mg/dL (7-18); Bilirubin, Total 0.4 mg/dL (0.2-1.0); CO2 28.6 mmol/L (21.0-32.0); CREATININE 0.8 mg/dL (0.55-1.02); Calcium 9.4 mg/dL (8.5-10.1); Calculated LDL 49 mg/dL (<100); Chloride 101 mmol/L (98-107); Cholesterol 133 mg/dL (<200); Estimated GFR 81.21 (mL/min/1.73m2); Glucose 194 mg/dL (74-106); HDL Cholesterol 59 mg/dL (40-60); Sodium 138 mmol/L (136-145); TSH 1.95 uIU/mL (0.36-3.74); Total Protein 7.5 g/dL (6.4-8.2); Triglyceride 127 mg/dL (<150)
== END 2023-06-08 14:20 | disposition home or self-care (01) ==
LOC: NCHCN 14:19
PROVIDERS: PCP Nurse Practitioner Family; Visit Provider Nurse Practitioner Family
DX: I10 Essential (primary) hypertension (principal); E78.5 Hyperlipidemia, unspecified; E03.9 Hypothyroidism, unspecified; E11.9 Type 2 diabetes mellitus without complications
CPT/HCPCS: 80053; 80061; 83036; 84443

== ENCOUNTER 2023-11-22 20:53 | Outpatient (REF) | payer MEDICARE, OTHER, SELFPAY ==
[2023-11-22 21:22] LABS: Hemoglobin A1C 6.3 % (<5.7)
[2023-11-22 21:26] LABS: ALT 34 U/L (14-59); AST 17 U/L (15-37); Albumin 4.2 g/dL (3.4-5.0); Alkaline Phosphatase 62 U/L (46-116); Anion Gap 8.5 mmol/L (3-11); BUN 26 mg/dL (7-18); Bilirubin, Total 0.43 mg/dL (0.2-1.0); CO2 28.5 mmol/L (21.0-32.0); CREATININE 0.8 mg/dL (0.55-1.02); Calcium 9.6 mg/dL (8.5-10.1); Chloride 103 mmol/L (98-107); Estimated GFR 80.71 (mL/min/1.73m2); FREE T4 1.45 ng/dL (0.76-1.46); Glucose 109 mg/dL (74-106); Potassium 4.1 mmol/L (3.5-5.1); Sodium 140 mmol/L (136-145); TSH 2.15 uIU/Ml (0.36-3.74); Total Protein 7.4 g/dL (6.4-8.2)
[2023-11-22 21:39] LABS: Calculated LDL 39 mg/dL (<100); Cholesterol 122 mg/dL (<200); HDL Cholesterol 52 mg/dL (40-60); Triglyceride 157 mg/dL (<150)
== END 2023-11-22 20:54 | disposition home or self-care (01) ==
LOC: NCHCN 20:53
PROVIDERS: Visit Provider Nurse Practitioner Family
DX: I10 Essential (primary) hypertension (principal); E78.5 Hyperlipidemia, unspecified; E03.9 Hypothyroidism, unspecified; E11.9 Type 2 diabetes mellitus without complications
CPT/HCPCS: 80053; 80061; 83036; 84439; 84443

== ENCOUNTER 2024-02-14 15:27 | Outpatient (REF) | payer MEDICARE, OTHER, SELFPAY ==
[2024-02-14 20:57] LABS: ALT 40 U/L (14-59); AST 24 U/L (15-37); Albumin 4.1 g/dL (3.4-5.0); Alkaline Phosphatase 73 U/L (46-116); Anion Gap 8.8 mmol/L (3-11); BUN 23 mg/dL (7-18); Bilirubin, Total 0.43 mg/dL (0.2-1.0); CO2 30.2 mmol/L (21.0-32.0); CREATININE 0.8 mg/dL (0.55-1.02); Calcium 9.7 mg/dL (8.5-10.1); Calculated LDL 58 mg/dL (<100); Chloride 104 mmol/L (98-107); Cholesterol 150 mg/dL (<200); Estimated GFR 80.71 (mL/min/1.73m2); Glucose 119 mg/dL (74-106); HDL Cholesterol 55 mg/dL (40-60); Potassium 4.1 mmol/L (3.5-5.1); Sodium 143 mmol/L (136-145); TSH 2.67 uIU/Ml (0.36-3.74); Total Protein 7.5 g/dL (6.4-8.2); Triglyceride 187 mg/dL (<150); Vitamin D 25 Total 37.8 ng/mL (30-100)
[2024-02-14 21:13] LABS: FREE T4 1.36 ng/dL (0.76-1.46)
== END 2024-02-14 15:28 | disposition home or self-care (01) ==
LOC: NCHCN 15:27
PROVIDERS: Visit Provider Nurse Practitioner Family
DX: I10 Essential (primary) hypertension (principal); E55.9 Vitamin D deficiency, unspecified
CPT/HCPCS: 80053; 80061; 82306; 84439; 84443

== ENCOUNTER 2024-05-16 15:16 | Outpatient (REF) | payer MEDICARE, OTHER, SELFPAY ==
[2024-05-16 19:20] LABS: Abs Immature Grans 0.01 10^3/uL (0.0-0.06); Absolute Basophil Count 0.04 10^3/uL (0.0-0.2); Absolute Lymphocyte Count 0.86 10^3/uL (1.2-3.4); Absolute Monocyte Count 0.49 10^3/uL (0.1-0.8); Absolute Neutrophil Count 5.07 10^3/uL (1.2-6.7); Basophils % 0.6 %; Eosinophils % 1.5 %; HCT 41.7 % (36.0-46.0); HGB 14.4 g/dL (11.2-15.7); Immature Grans % 0.2 %; Lymphocytes % 13.1 %; MCH 30.1 pg (27.0-33.0); MCHC 34.5 % (32.0-36.0); MCV 87 fL (80-95); Monocytes % 7.5 %; Neutrophils % 77.1 %; Platelet Count 228 10^3/uL (130-400); RBC 4.78 10^6/uL (3.93-5.22); RDW 11.9 % (11.7-14.6); WBC 6.57 10^3/uL (4.4-10.8)
[2024-05-16 19:40] LABS: ALT 33 U/L (14-59); AST 22 U/L (15-37); Alkaline Phosphatase 81 U/L (46-116); Anion Gap 3.9 mmol/L (3-11); BUN 21 mg/dL (7-18); Bilirubin, Total 0.41 mg/dL (0.2-1.0); CO2 34.1 mmol/L (21.0-32.0); CREATININE 0.8 mg/dL (0.55-1.02); Chloride 103 mmol/L (98-107); Estimated GFR 80.71 (mL/min/1.73m2); FREE T4 1.33 ng/dL (0.76-1.46); Glucose 129 mg/dL (74-106); Lipase 36 U/L (<78); Potassium 3.9 mmol/L (3.5-5.1); Sodium 141 mmol/L (136-145); TSH 1.05 uIU/mL (0.36-3.74); Total Protein 7.7 g/dL (6.4-8.2)
[2024-05-16 19:45] LABS: Calcium 9.6 mg/dL (8.5-10.1)
[2024-05-16 19:52] LABS: COMMENT (LAB VIEW ONLY) 42.03 mg/dL; Microalb ug/mg Crea 38.1 ug/mg Cr
== END 2024-05-16 15:17 | disposition home or self-care (01) ==
LOC: NCHCN 15:16
PROVIDERS: Visit Provider Nurse Practitioner Family
DX: E11.9 Type 2 diabetes mellitus without complications (principal); E03.9 Hypothyroidism, unspecified; R10.12 Left upper quadrant pain
CPT/HCPCS: 80053; 83690; 82043; 82570; 84439; 84443; 85025